=== PATIENT | female | born 1990 | race Caucasian/White ===

== ENCOUNTER 2017-03-17 19:46 | Emergency (ER) | payer OTHER ==
[~2017-03-17] VITALS: Ht 157.5 cm; Wt 89.6 kg
[~2017-03-17 19:46] MED LIST: ASPIRIN81 M2 PO; BENADRYL50 MG PO; BENTYL10 MG PO; KEFLEX500 MG PO; MOTRIN800 MG PO; PEPCID40 MG PO; PERCOCET 5/31 TABLET PO; PRILOSEC40 MG PO
[2017-03-17 21:01] LABS: HEMATOCRIT 40.3 % (36.0-46.0); MCHC 33.3 G/DL (30.0-36.0); MCV 84.3 FL (83-99); MEAN PLAT.VOLUME 9.3 uM^3 (9.5-12.4); PLATELET COUNT 246 K/uL (156-360); RBC DIS.WIDTH-CV 13.2 % (11.8-14.6); RBC DIS.WIDTH-SD 40.6 % (39-53); RED BLOOD COUNT 4.78 M/uL (3.80-5.20); WHITE BLOOD COUNT 10.6 K/uL (4.1-10.2)
[2017-03-17 21:12] LABS: CHLORIDE 107 mEq/L (99-109); POTASSIUM 3.9 mEq/L (3.7-5.4); SODIUM 141 mEq/L (136-147)
[2017-03-17 21:13] LABS: GLUCOSE 97 mg/dL (70-99)
[2017-03-17 21:15] LABS: ANION GAP 8 MEQ/L (2-14)
[2017-03-17 21:17] LABS: GFR ESTIMATE (CALCULATED) > 59 mL/min/
[2017-03-17 21:18] LABS: UREA NITROGEN (BUN) 11 mg/dL (9-23)
[2017-03-17 21:19] LABS: D-DIMER ELISA < 150.00 ng/mLDDU (<230)
[2017-03-17 21:24] LABS: TROP-I INTERPRETATION NEGATIVE; TROPONIN-I < 0.01 ng/mL (0.0-0.30)
[2017-03-17] MEDS ORDERED: NAPROSYN500 MG PO (21:36)
[2017-03-17 21:51] VITALS: BP 122/83
== END 2017-03-17 21:52 | disposition home or self-care (01) ==
LOC: EME 19:46
PROVIDERS: Emergency Medicine
DX: J20.9 Acute bronchitis, unspecified (principal); R07.89 Other chest pain; F17.200 Nicotine dependence, unspecified, uncomplicated
CPT/HCPCS: 71020; 80048; 83880; 84484; 85027; 85379; 93005; 99281; 99283

== ENCOUNTER 2018-03-06 15:35 | Emergency (ER) | payer OTHER, BC ==
[~2018-03-06] VITALS: Ht 154.9 cm; Wt 89.1 kg
[~2018-03-06 15:35] MED LIST changes: +NAPROSYN500 MG PO
[2018-03-06 15:58] LABS: BASOPHIL (%) 0.5 % (0-1); BASOPHIL COUNT 0.1 K/uL (0-0.1); EOSINOPHIL (%) 2.5 % (0-5); EOSINOPHIL COUNT 0.3 K/uL (0-0.3); HEMATOCRIT 40.6 % (36.0-46.0); HEMOGLOBIN 14.3 G/DL (11.9-15.5); IMMATURE GRANULOCYTE (%) 0.4 % (0.0-0.7); LYMPHOCYTE (%) 28.9 % (15-42); LYMPHOCYTE COUNT 3.2 K/uL (1.0-2.8); MCH 29.6 PG (29.0-34.0); MCHC 35.2 G/DL (30.0-36.0); MCV 84.1 FL (83-99); MONOCYTE (%) 6.1 % (3-12); MONOCYTE COUNT 0.7 K/uL (0-0.8); NEUTROPHIL (%) 61.6 % (45-76); NEUTROPHIL COUNT 6.8 K/uL (1.8-6.4); PLATELET COUNT 268 K/uL (156-360); RBC DIS.WIDTH-CV 12.9 % (11.8-14.6); RBC DIS.WIDTH-SD 39.9 % (39-53); RED BLOOD COUNT 4.83 M/uL (3.80-5.20)
[2018-03-06 16:13] LABS: ALBUMIN 4.5 g/dL (3.2-4.8); CHLORIDE 106 mEq/L (99-109); POTASSIUM 3.8 mEq/L (3.7-5.4); SODIUM 138 mEq/L (136-147)
[2018-03-06 16:15] LABS: GLUCOSE 101 mg/dL (70-99)
[2018-03-06 16:16] LABS: TOTAL PROTEIN 7.1 g/dL (6.4-8.3)
[2018-03-06 16:17] LABS: TOTAL BILIRUBIN 0.6 mg/dL (0.0-1.0)
[2018-03-06 16:19] LABS: ALKALINE PHOSPHATASE 41 IU/L (3-129); CREATININE 0.8 mg/dL (0.6-1.3); GFR ESTIMATE (CALCULATED) > 59 mL/min/
[2018-03-06 16:20] LABS: UREA NITROGEN (BUN) 7 mg/dL (9-23)
[2018-03-06 16:21] LABS: AST (GOT) 14 IU/L (2-34)
[2018-03-06 16:22] LABS: ALT (GPT) 11 IU/L (3-49); LIPASE 16 U/L (1.0-51.0)
[2018-03-06 16:28] LABS: QUANTITATIVE HCG < 4.0 MIU/ML
[2018-03-06 16:53] LABS: APPEARANCE CLEAR ((CLEAR)); BILIRUBIN NEGATIVE; BLOOD NEGATIVE; COLOR COLORLESS ((YELLOW)); GLUCOSE (STRIP) NEGATIVE; KETONES NEGATIVE; LEUKOCYTES NEGATIVE; NITRITE NEGATIVE; PROTEIN (STRIP) NEGATIVE; SPECIFIC GRAVITY 1.001 (1.000-1.030); UROBILINOGEN 0.2 MG/DL (0.2-1.0)
[2018-03-06 17:51] VITALS: BP 112/74
== END 2018-03-06 17:54 | disposition home or self-care (01) ==
LOC: EME 15:35
PROVIDERS: Nurse Practitioner Family
DX: S30.1XXA Contusion of abdominal wall, initial encounter (principal); S60.222A Contusion of left hand, initial encounter; V49.40XA Driver injured in collision with unspecified motor vehicles in traffic accident, initial encounter; Y92.410 Unspecified street and highway as the place of occurrence of the external cause; F17.200 Nicotine dependence, unspecified, uncomplicated; Z79.82 Long term (current) use of aspirin
CPT/HCPCS: 71260; 74177; 80053; 81003; 83690; 84702; 85025; 99281; 99284; J7030